=== PATIENT | male | born 1985 | race Caucasian/White ===

== ENCOUNTER 2016-11-16 22:22 | Emergency (ER) | payer OTHER ==
--- NOTE | 2016-11-16 22:43 | ERNOTE ---
Upper Extremity HPI - Narrative Date of Service: 11/16/16 - General Extremities Pain Location: arm: right Time Seen by Provider: 11/16/16 22:42 Source: patient Exam Limitations: no limitations - Immun/Allergies/Home Medications Immunizations: IMMUNIZATION HX Immunizations Up to Date Yes History of Influenza Vaccine Yes Hx Pneumococcal Vaccination No Allergies/Adverse Reactions: Allergies Allergy/AdvReac Type Severity Reaction Status Date / Time Penicillins AdvReac Intermediate Hives Verified 11/16/16 22:32 Home Medications: HOME MEDICATIONS Ibuprofen [Motrin] 600 mg PO TID PRN #30 tab 11/16/16 [Last Taken Unknown] - History of Present Illness Narrative: PT WORKING EMT, 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 THIS HAPPENED ABOUT 2 HOURS AGO. HE HAS NOTICED SINCE THEN A PAIN THRU HIS RIGHT BICEPS AREA, WORSE WITH FLEXION OF HIS RIGHT ELBOW. HE DID NOT NOTICE AN ACUTE PAIN AT THE TIME OF CALL. STATES HE HAD SOME OLD RIGHT SHOULDER STRAIN SEVERAL YEARS AGO BUT NOT BICEPS . HE IS RIGHT HANDED. WHEN LIFTING THE CART TO KEEP IT MOVING HE WAS ESSENTIALLY DOING ARM CURLS. HE HAS DONE NO TREATMENT SINCE IT HAPPENED. Occurred: this evening Location of Incident: work Severity: moderate Modifying Factors - (Worsens): Reports: movement Other Injuries: Reports: none Review of Systems - Review of Systems Constitutional: Present: See HPI EYE: Present: no symptoms reported ENT: Present: pulling on ears Respiratory: Present: no symptoms reported Cardiology: Present: no symptoms reported Musculoskeletal: Present: See HPI Skin: Present: no symptoms reported Neurological: Present: no symptoms reported Psych: Present: no symptoms reported All Other Systems: All systems neg except as marked - Patient's Past Medical History Patient History - Medical: No pertinent hx Patient History - Cardiac/Respiratory: No pertinent hx Patient History - Cancer: No Hx of Cancer Patient History - Surgical Procedures: No surgical history Patient History - Other: None - Social History Living Situations: home Psych History: No pertinent hx Smoking Status: Current every day smoker - Immunizations Immunizations Up to Date: Yes Hx Pneumococcal Vaccination: No History of Influenza Vaccine: Yes Physical Exam - Physical Exam General Appearance: Present: wd/wn, alert, mild distress Neck: Present: normal inspection, nontender Respiratory: Present: no respiratory distress, normal breath sounds, no accessory muscle use Cardiovascular/Chest: Present: regular rate, rhythm, no murmur, normal peripheral pulses Peripheral Pulses: N=norm/S=strong/W=weak/B=bound/A=absent: Radial (R): Normal, Radial (L): Normal Extremity Exam: Present: normal except - - THERE IS A MILD PROMINENCE OF RIGHT BICEPS COMPARED TO LEFT BUT HE IS RIGHT HANDED. THERE IS NO DISCOLORATION OR TENSENESS OF THE BICEPS TO PALPATION. I DO NOT SEE OF FEEL ANY BONY DEFORMITY. THERE IS NO CLAVICULAR OR SHOULDER JOINT PAIN. HE HAS NO PAIN TO AXIAL LOADING OF THE HUMERUS OR FOREARM. THERE IS PAIN WITH FLEXION AND EXTENSION OF THE RIGHT ELBOW FROM HIS RESTING POSITION WHERE HE HOLDS THE ELBOW AT 90 DEGREES. , no edema, decreased range of motion. Absent: normal range of motion, joint swelling, extremity edema Neurological Exam: Present: alert, oriented, normal mood/affect, no motor/ sensory deficits Skin Exam: Present: normal color, warm/dry ED Progress - Vital Signs Vital Signs: Vital Signs 11/16/16 22:29 Temperature 37.3 C Pulse Rate 88 Respiratory 16 Rate Blood Pressure 133/91 - X-Ray X-Ray #1 X-Ray: humerus Interpretation: Interp. by me X-ray Comments: NO SIGN OF BONY OR SOFT TISSUE ABNORMALITY. - Progress/Reassessment Chief Complaint: Upper Extremity Injury/Problem Plan - Plan Plan: SLING , ICE , IBUPROFEN OR ALEVE AND F/U WITH OCCUPATIONAL HEALTH. Departure Clinical Impression: Biceps strain Qualifiers: Encounter type: initial encounter Laterality: right Qualified Code(s): S46.111A - Strain of muscle, fascia and tendon of long head of biceps, right arm , initial encounter - Departure Condition: Fair Instructions: Biceps Tendon Disruption (Distal) With [facility] Additional Instructions: REST, SLING, ICE TO SORE AREA FOR 30 MINS. EVERY 4 HOURS FOR 2 DAYS. AFTER THAT USE HEAT FOR COMFORT. START WITH USING TYLENOL, 650MG EVERY 6 HOURS OR IBUPROFEN , 600 MG EVERY 8 HOURS , OR ALEVE, 2 TABS EVERY 12 HOURS FOR PAIN. LEFT HANDED WORK ONLY AND FOLLOW UP WITH OCCUPATIONAL HEALTH TOMORROW FOR FURTHER INSTRUCTIONS. Prescriptions: Ibuprofen [Motrin] 600 mg PO TID PRN #30 tab PRN Reason: Pain
[2016-11-17 00:01] VITALS: BP 120/78
== END 2016-11-17 | disposition home or self-care (01) ==
LOC: ER 22:22
DX: S46.111A Strain of muscle, fascia and tendon of long head of biceps, right arm, initial encounter (principal); Z72.0 Tobacco use; X58.XXXA Exposure to other specified factors, initial encounter; Y93.F2 Activity, caregiving, lifting; Y99.0 Civilian activity done for income or pay